=== PATIENT | female | born 1985 | race Caucasian/White ===

== ENCOUNTER 2016-09-14 06:23 | Day surgery (SDC) | payer BC, OTHER ==
[2016-09-14 07:38] LABS: Hematocrit 39 % (35-47); Hemoglobin 12.5 g/dl (12.0-16.0); Mean Corpuscular HGB Conc 32 g/dl (31-36); Mean Corpuscular Hemoglobin 26 pg (27-31); Mean Corpuscular Volume 81 fL (80-97); Mean Platelet Volume 9 um3 (7.4-10.4); Red Blood Count 4.79 10^6/ul (4.0-5.4); Red Cell Distribution Width 16 % (10.5-15); White Blood Count 11.3 10^3/ul (3.5-10.8)
[2016-09-14] MEDS ORDERED: Pantoprazole TAB (NF) 40 MG TAB PO ONE (07:43)
[2016-09-14 07:55] LABS: BUN/Creatinine Ratio 17.2 (8-20); Calcium 9.7 mg/dL (8.6-10.3); EGFR African American 155.9 (>60); EGFR Non-African American 121.3 (>60); Globulin 2.7 g/dL (2-4); Magnesium 1.7 mg/dL (1.9-2.7); Potassium 4.3 mmol/L (3.5-5.0); Total Bilirubin 0.3 mg/dL (0.2-1.0); Total Protein 6.7 g/dL (6.4-8.9)
[2016-09-14 08:09] LABS: Manual Entry Verification HAN0055; UR Preg Internal Control QC Line Present
[2016-09-14 08:14] LABS: Urine Bacteria Absent (Absent); Urine Bilirubin Negative (Negative); Urine Glucose Negative (Negative); Urine Nitrite Negative (Negative)
--- NOTE | 2016-09-14 08:30 | RAD ---
INDICATION: Chest pain. COMPARISON: Comparison is made with a prior chest x-ray study from October 02, 2015. TECHNIQUE: A portable view of the chest was obtained. FINDINGS: Cardiac and mediastinal contours appear to be within normal limits. The lungs are clear. No pleural effusion is seen. IMPRESSION: NO EVIDENCE FOR ACUTE DISEASE.
[2016-09-14 08:31] LABS: T4 7.35 mcg/mL (6.09-12.23)
[2016-09-14 08:32] LABS: TSH (Thyroid Stimulating Horm) 0.97 mcIU/mL (0.34-5.60)
[2016-09-14] MEDS ORDERED: Magnesium Oxide TAB* 400 MG PO ONE (08:56)
--- NOTE | 2016-09-14 08:56 | RAD ---
INDICATION: Right upper quadrant pain. COMPARISON: Comparison is made with a prior right upper quadrant ultrasound from March 01, 2013. TECHNIQUE: Multiple real-time images of the right upper quadrant were obtained. FINDINGS: There are gallstones present. There is mild gallbladder wall thickening measuring up to 0.4 cm in thickness and a small amount of pericholecystic fluid. There is a positive sonographic Ramirez sign present. No intra or extrahepatic ductal distention is present. The common bile duct measured 0.5 cm in diameter. The liver is normal in size and increased in echogenicity suggestive of fatty infiltration. No significant focal abnormality is seen. The pancreas is partially obscured by overlying bowel gas. The right kidney is normal in size without evidence for hydronephrosis. IMPRESSION: 1. CHOLELITHIASIS AND FINDINGS SUGGESTIVE OF ACUTE CHOLECYSTITIS, RECOMMEND CLINICAL CORRELATION. 2. FINDINGS CONSISTENT WITH FATTY INFILTRATION OF THE LIVER.
[2016-09-14] MEDS ORDERED: Omeprazole CAP* 20 MG PO ONE (09:00)
[2016-09-14] MEDS ORDERED: Ondansetron INJ* 2 MG/ML VIAL IV PRN (12:20)
[2016-09-14] MEDS ORDERED: HYDROmorphone* 1 MG/ML 1 ML SYR IV SLOW PU PRN (12:20)
[2016-09-14] MEDS ORDERED: fentaNYL* 50 MCG/ML 2 ML VIAL (100 MCG VIAL) ONE ×3 (13:40→16:33)
[2016-09-14] MEDS ORDERED: Midazolam* 1 MG/ML 2 ML VIAL (2 MG) ONE (13:40)
[2016-09-14] MEDS ORDERED: Scopolamine 1.5 mg* PATCH ONE (13:46)
--- NOTE | 2016-09-14 13:50 | HP ---
ADMISSION HISTORY AND PHYSICAL: DATE OF ADMISSION: 09/14/16. ATTENDING SURGEON: Godwin Jordan MD The patient was seen initially in the ED. CHIEF COMPLAINT: Abdominal pain. HISTORY OF PRESENT ILLNESS: This is a generally healthy 31-year-old female who was awakened at 1 o'clock this morning with pain in the upper abdomen radiating to the right upper quadrant, the mid chest, and the back. It was severe and unrelieved by change of position or antacids. It was associated with nausea, but no vomiting. It felt like severe indigestion. She has also had 2 episodes of diarrhea since the initial episode. At the present time, pain seems to be coming back after a brief hiatus. There is a positive family history of gallbladder disease. The patient relates having had previous similar, but milder symptoms in the past month and a half and also some associated diarrhea. She denies any change in the color of her urine or stools. Only previous abdominal surgery is a x3 via low transverse incision. PAST MEDICAL HISTORY: 1. GERD. 2. Seasonal environmental allergies. 3. PCOS. PAST SURGICAL HISTORY: 1. x3, most recent being December 2015. 2. Tonsillectomy remotely. 3. Bilateral foot surgery. 4. No reported surgical or anesthesia complications. CURRENT MEDICATIONS: 1. Famotidine 20 mg b.i.d. 2. Gapp-syh-wgczttt loratadine 10 mg daily p.r.n. DRUG ALLERGIES: PERCOCET, HYDROCODONE, and TRAMADOL all have caused GI side effects, rash, and hallucinations (she has tolerated codeine, morphine, and Dilaudid). TOPICAL CLINDAMYCIN and BENZACLIN have caused facial swelling. FAMILY HISTORY: Negative for anesthesia problems, bleeding, or clotting disorders. SOCIAL HISTORY: The patient is . She has 4 children. 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 She denies use of tobacco. She drinks up to 1 to 2 drinks per month. She denies other recreational drug use. REVIEW OF SYSTEMS: General: No recent constitutional symptoms or acute illnesses, other than described in the HPI. HEENT: No problems reported. Heart: No other history of chest pain, palpitations, or heart murmur. Respiratory: No history of asthma, chronic cough, or shortness of breath. GI: As above per HPI. No additions. : No additional symptoms. 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 Endocrine: No diabetes or thyroid dysfunction. She does have PCOS and had been treated with metformin in the past primarily for weight loss. Musculoskeletal: No problems reported. Neuro/psychological: No problems reported. PHYSICAL EXAMINATION GENERAL: Well-nourished obese female in no acute distress. VITAL SIGNS: Height 5 feet 4 inches, weight 210 pounds. Temperature 97.6, blood pressure 120/82, pulse 94, respirations 20, room air saturation 99%. HEENT: Pupils are equal, round, and reactive. EOMs intact. No conjunctival pallor or scleral icterus. Oropharynx: Mucous membranes slight dry. No intraoral lesions. Teeth in good repair. NECK: No lymphadenopathy, thyromegaly or masses. LUNGS: Clear to auscultation. No rales or wheezes. BREASTS: Not examined. HEART: Regular rate and rhythm. No murmur noted. ABDOMEN: Well-healed Pfannenstiel incision, obese. Bowel sounds present. Soft with moderate tenderness in the right upper quadrant as well as mid epigastrium. The remainder of the abdomen varies from uncomfortable to nontender. There are no peritoneal signs. There are no palpable masses or organomegaly. BACK: There is some mild spinous process tenderness in the mid thoracic spine. No CVA tenderness. EXTREMITIES: Without edema. NEUROLOGIC: Grossly intact. SKIN: Warm and dry. No suspicious rashes or lesions. LABORATORY DATA: Of note, white blood cell count 11,300; hemoglobin 12.5. Electrolytes are normal with the exception of magnesium at 1.7. Her lactic acid is normal at 1.2. Liver function tests are normal. TSH and T4 are normal. I will add a serum lipase, which is pending. Ultrasound of the right upper quadrant shows gallstones as well as gallbladder wall thickening at 4 mm and a small amount of pericholecystic fluid. Common bile duct is normal at 5 mm. There are also some fatty liver changes. EKG was normal. Chest x-ray shows no acute disease. IMPRESSION: Acute calculus cholecystitis. PLAN: I have discussed her case with Dr. Jordan, who will see her and examine her to confirm findings. At this point, plan is for laparoscopic cholecystectomy later today. HARLEY TOMLIN CC: Majo Pineda NP at [facility]* [id number]/[facility] #: [id number] [facility]
[2016-09-14] MEDS ORDERED: ceFAZolin 2 GM PREMIX(*) 2 GM/50 ML BAG IVPB ONE (13:53)
[2016-09-14] MEDS ORDERED: Bupivacaine 0.5% W/EPI SDV* 30 ML VIAL ONE (14:03)
[2016-09-14] MEDS ORDERED: Ondansetron INJ* 2 MG/ML VIAL ONE (14:37)
[2016-09-14] MEDS ORDERED: Dexamethasone IV* 4 MG/ML 1 ML (4 MG) ONE (14:37)
[2016-09-14] MEDS ORDERED: Succinylcholine* 20 MG/ML 10 ML VIAL ONE (14:37)
[2016-09-14] MEDS ORDERED: Propofol* 10 MG/ML 20 ML BTL IV PUSH ONE (14:37)
[2016-09-14] MEDS ORDERED: Lidocaine 2% PF * 5 ML VIAL ONE (14:37)
[2016-09-14] MEDS ORDERED: Metoclopramide IV* 5 MG/ML 2 ML VIAL IV PRN (15:07)
[2016-09-14] MEDS ORDERED: Scopolamine 1.5 mg* PATCH TRANSDERM PRN (15:07)
--- NOTE | 2016-09-14 16:01 | PN ---
Progress Note - Progress Note Note: Brief Operative Note: Preop Dx: Acute calculous cholecystitis Postop Dx: same Anesthesia: GET Surgeon: Julian Asst: HARLEY Werner EBL: < 100 ml Fluids: 1200 ml RL Drains: none Findings: dictated Specimen: gallbladder
[2016-09-14] MEDS ORDERED: HYDROmorphone* 1 MG/ML 1 ML SYR ONE (16:06)
[2016-09-14] MEDS: HYDROmorphone* 1 MG/ML 1 ML SYR IV PRN ×5 (16:09→16:29)
[2016-09-14] MEDS ORDERED: Acetaminop/Codeine 30 MG TAB* 1 TAB (300 MG/30 MG) PO PRN ×2 (16:12→16:16)
[2016-09-14] MEDS ORDERED: Acetaminophen TAB* 325 MG PO PRN (16:17)
[2016-09-14] MEDS ORDERED: Ibuprofen TAB* 600 MG PO PRN (16:17)
[2016-09-14] MEDS: fentaNYL* 50 MCG/ML 2 ML VIAL (100 MCG VIAL) IV PRN ×4 (16:33→17:24)
[2016-09-14] MEDS ORDERED: Acetaminop/Codeine 30 MG TAB* 1 TAB (300 MG/30 MG) ONE (16:53)
[2016-09-14] MEDS ORDERED: Metoclopramide IV* 5 MG/ML 2 ML VIAL ONE (17:50)
--- NOTE | 2016-09-14 17:59 | ED ---
Yaniv Wang Billy, scribed for Butch Huff MD on 09/14/16 at 0723 . HPI Chest Pain - HPI Summary HPI Summary: This is a 31 year-old female with a history of GERD coming to [facility] for evaluation of sternal chest pain that radiates to the upper chest, back, and RUQ. She states that she thought that her pain was "acid reflux" when she woke up due to the pain at 0100 today. Patient takes famotidine TID with her meals, as prescribed, and states that she has been doing so since her (she gave 9 months ago). She describes stabbing pain. Nothing made her pain better or worse. She reports positive sweating, denies nausea, vomiting, or diarrhea. LMP 1 month ago. - History of Current Complaint Chief Complaint: EDChestPainROMI Time Seen by Provider: 09/14/16 07:13 Hx Obtained From: Patient Onset/Duration: Started Hours Ago Timing: Constant Initial Severity: Moderate Current Severity: Moderate Pain Intensity: 5 Pain Scale Used: 0-10 Numeric Chest Pain Location: Mid Sternal Chest Pain Radiates: Yes Chest Pain Radiates To:: Back Character: Sharp/Stabbing Aggravating Factor(s): Nothing Alleviating Factor(s): Nothing Associated Signs and Symptoms: Positive: Chest Pain, Diaphoresis. Negative: Nausea, Vomiting - Allergy/Home Medications Allergies/Adverse Reactions: Allergies Allergy/AdvReac Type Severity Reaction Status Date / Time Benzoyl Peroxide Allergy Swelling Verified 12/29/15 17:31 [From Benzaclin] Clindamycin [From Benzaclin] Allergy Swelling Verified 12/29/15 17:31 Hydrocodone Allergy Itching Verified 12/29/15 17:31 Oxycodone [From Percocet] Allergy Vomiting Verified 12/29/15 17:31 Tramadol AdvReac Unknown Hallucinati Verified 12/29/15 17:31 ons Home Medications: Home Medications Famotidine TAB* [Pepcid 20 MG TAB*] 20 mg PO TID 09/14/16 [History Confirmed ] PMH/Surg Hx/FS Hx/Imm Hx Cardiovascular History: Reports: Hx Cardiomegaly - "Enlarged heart" GI History: Reports: Hx Gastroesophageal Reflux Disease, Hx Irritable Bowel - ON MEDICATION History: Reports: Hx Kidney Stones, Other Problems/Disorders - frequent UTI Sensory History: Reports: Hx Contacts or Glasses - GLASSES Opthamlomology History: Reports: Hx Contacts or Glasses - GLASSES Neurological History: Reports: Hx Headaches, Hx Migraine - 2-3 TIMES A MONTH - PREMENSTRUAL Psychiatric History: Reports: Hx Anxiety, Hx Depression, Other Psychiatric Issues/Disorders - Panic attacks - Surgical History Surgery Procedure, Year, and Place: 2003 & 2007 CSECTION X 2, [facility]. 1990 TONSILLECTOMY, [facility]. 2008 RIGHT FOOT SURGERY FOR INJURY, [facility]. LEFT FOOT SURGERY BUNIONECTOMY 05/18/13 Hx Anesthesia Reactions: No - Immunization History Date of Tetanus Vaccine: Unknown Infectious Disease History: No Infectious Disease History: Denies: Traveled Outside the [place] in Last 30 Days - Family History Known Family History: Positive: Cardiac Disease, Diabetes - Social History Alcohol Use: None Substance Use Type: Reports: None Smoking Status (MU): Never Smoked Tobacco Review of Systems Positive: Skin Diaphoresis Positive: Chest Pain Negative: Vomiting, Nausea All Other Systems Reviewed And Are Negative: Yes Physical Exam - Summary Physical Exam Summary: VITAL SIGNS: Reviewed. GENERAL: Patient is a well-developed and nourished female who is lying comfortable in the stretcher. Patient is not in any acute respiratory distress. HEAD AND FACE: Normocephalic and atraumatic. EYES: PERRLA, EOMI x 2, No injected conjunctiva. EARS: Hearing grossly intact. Ear canals and tympanic membranes are WNL. MOUTH: Oropharynx within normal limits. NECK: Supple, trachea is midline, no adenopathy, no JVD. CHEST: Symmetric, no tenderness at palpation LUNGS: Clear to auscultation bilaterally. No wheezing or crackles. CVS: RRR, S1 and S2 present, no murmurs or gallops appreciated. ABDOMEN: Soft, positive tenderness to the RUQ and epigastrium. No signs of distention. Positive bowel sounds. No rebound no guarding, and no masses palpated. No abdominal bruit or pulsations. EXTREMITIES: FROM in all major joints, no edema, no cyanosis or clubbing. NEURO: Alert and oriented x 3. No acute neurological deficits. Speech is normal. SKIN: Dry and warm Triage Information Reviewed: Yes Vital Signs On Initial Exam: Initial Vitals Temp Pulse Resp BP Pulse Ox 97.6 F 84 16 152/89 100 09/14/16 06:30 09/14/16 06:30 09/14/16 06:30 09/14/16 06:30 09/14/16 06:30 Vital Signs Reviewed: Yes Diagnostics - Vital Signs Vital Signs Temp Pulse Resp BP Pulse Ox 09/14/16 06:30 97.6 F 84 16 152/89 100 - Laboratory Lab Results: Lab Results 09/14/16 09/14/16 09/14/16 Range/Units 07:30 07:30 07:30 WBC 11.3 H (3.5-10.8) 10^3/ul RBC 4.79 (4.0-5.4) 10^6/ul Hgb 12.5 (12.0-16.0) g/dl Hct 39 (35-47) % MCV 81 (80-97) fL MCH 26 L (27-31) pg MCHC 32 (31-36) g/dl RDW 16 H (10.5-15) % Plt Count 269 (150-450) 10^3/ul MPV 9 (7.4-10.4) um3 Neut % (Auto) 75.2 (38-83) % Lymph % (Auto) 18.7 L (25-47) % [place] % (Auto) 4.3 (1-9) % Eos % (Auto) 1.3 (0-6) % Baso % (Auto) 0.5 (0-2) % Absolute Neuts (auto) 8.5 H (1.5-7.7) 10^3/ul Absolute Lymphs (auto) 2.1 (1.0-4.8) 10^3/ul Absolute Monos (auto) 0.5 (0-0.8) 10^3/ul Absolute Eos (auto) 0.1 (0-0.6) 10^3/ul Absolute Basos (auto) 0.1 (0-0.2) 10^3/ul Absolute Nucleated RBC 0.01 10^3/ul Nucleated RBC % 0.1 Sodium 136 (133-145) mmol/L Potassium 4.3 (3.5-5.0) mmol/L Chloride 104 (101-111) mmol/L Carbon Dioxide 26 (22-32) mmol/L Anion Gap 6 (2-11) mmol/L BUN 10 (6-24) mg/dL Creatinine 0.58 (0.51-0.95) mg/dL Est GFR ( Amer) 155.9 (>60) Est GFR (Non-Af Amer) 121.3 (>60) BUN/Creatinine Ratio 17.2 (8-20) Glucose 98 (70-100) mg/dL Lactic Acid 1.2 (0.5-2.0) mmol/L Calcium 9.7 (8.6-10.3) mg/dL Magnesium 1.7 L (1.9-2.7) mg/dL Total Bilirubin 0.30 (0.2-1.0) mg/dL AST 11 L (13-39) U/L ALT 12 (7-52) U/L Alkaline Phosphatase 53 (34-104) U/L Total Creatine Kinase 45 (10-223) U/L CK-MB (CK-2) 0.9 (0.6-6.3) ng/mL Troponin I 0.00 (<0.04) ng/mL B-Natriuretic Peptide ( - 100) pg/mL Total Protein 6.7 (6.4-8.9) g/dL Albumin 4.0 (3.2-5.2) g/dL Globulin 2.7 (2-4) g/dL Albumin/Globulin Ratio 1.5 (1-3) Lipase 16 (11.0-82.0) U/L TSH 0.97 (0.34-5.60) mcIU/mL Thyroxine (T4) 7.35 (6.09-12.23) mcg/mL Urine Color Urine Appearance Urine pH (5-9) Ur Specific Arnold (1.010-1.030) Urine Protein (Negative) Urine Ketones (Negative) Urine Blood (Negative) Urine Nitrate (Negative) Urine Bilirubin (Negative) Urine Urobilinogen (Negative) Ur Leukocyte Esterase (Negative) Urine WBC (Auto) (Absent) Urine RBC (Auto) (Absent) Ur Squamous Epith Cells (Absent) Urine Bacteria (Absent) Urine Glucose (Negative) Urine Ascorbic Acid Urine Test (Negative) 09/14/16 09/14/16 Range/Units 07:30 07:50 WBC (3.5-10.8) 10^3/ul RBC (4.0-5.4) 10^6/ul Hgb (12.0-16.0) g/dl Hct (35-47) % MCV (80-97) fL MCH (27-31) pg MCHC (31-36) g/dl RDW (10.5-15) % Plt Count (150-450) 10^3/ul MPV (7.4-10.4) um3 Neut % (Auto) (38-83) % Lymph % (Auto) (25-47) % [place] % (Auto) (1-9) % Eos % (Auto) (0-6) % Baso % (Auto) (0-2) % Absolute Neuts (auto) (1.5-7.7) 10^3/ul Absolute Lymphs (auto) (1.0-4.8) 10^3/ul Absolute Monos (auto) (0-0.8) 10^3/ul Absolute Eos (auto) (0-0.6) 10^3/ul Absolute Basos (auto) (0-0.2) 10^3/ul Absolute Nucleated RBC 10^3/ul Nucleated RBC % Sodium (133-145) mmol/L Potassium (3.5-5.0) mmol/L Chloride (101-111) mmol/L Carbon Dioxide (22-32) mmol/L Anion Gap (2-11) mmol/L BUN (6-24) mg/dL Creatinine (0.51-0.95) mg/dL Est GFR ( Amer) (>60) Est GFR (Non-Af Amer) (>60) BUN/Creatinine Ratio (8-20) Glucose (70-100) mg/dL Lactic Acid (0.5-2.0) mmol/L Calcium (8.6-10.3) mg/dL Magnesium (1.9-2.7) mg/dL Total Bilirubin (0.2-1.0) mg/dL AST (13-39) U/L ALT (7-52) U/L Alkaline Phosphatase (34-104) U/L Total Creatine Kinase (10-223) U/L CK-MB (CK-2) (0.6-6.3) ng/mL Troponin I (<0.04) ng/mL B-Natriuretic Peptide 55 ( - 100) pg/mL Total Protein (6.4-8.9) g/dL Albumin (3.2-5.2) g/dL Globulin (2-4) g/dL Albumin/Globulin Ratio (1-3) Lipase (11.0-82.0) U/L TSH (0.34-5.60) mcIU/mL Thyroxine (T4) (6.09-12.23) mcg/mL Urine Color Straw Urine Appearance Cloudy Urine pH 7.0 (5-9) Ur Specific Arnold 1.004 L (1.010-1.030) Urine Protein Negative (Negative) Urine Ketones Negative (Negative) Urine Blood Negative (Negative) Urine Nitrate Negative (Negative) Urine Bilirubin Negative (Negative) Urine Urobilinogen Negative (Negative) Ur Leukocyte Esterase 2+ H (Negative) Urine WBC (Auto) Trace(0-5/hpf) (Absent) Urine RBC (Auto) Absent (Absent) Ur Squamous Epith Cells Present H (Absent) Urine Bacteria Absent (Absent) Urine Glucose Negative (Negative) Urine Ascorbic Acid Not Reportable Urine Test Negative (Negative) Result Diagrams: 09/14/16 07:30 09/14/16 07:30 Lab Statement: Any lab studies that have been ordered have been reviewed, and results considered in the medical decision making process. - Radiology CXR Xray Interpretation: No Acute Changes Radiology Interpretation Completed By: Radiologist - Ultrasound No standard instances Ultrasound Interpretation Completed By: Radiologist - Abdominal Ultrasound: 1. CHOLELITHIASIS AND FINDINGS SUGGESTIVE OF ACUTE CHOLECYSTITIS, RECOMMEND CLINICAL CORRELATION. 2. FINDINGS CONSISTENT WITH FATTY INFILTRATION OF THE LIVER. - EKG 0633 EKG Interpretation: NSR 73 bpm, no STEMI Re-Evaluation - Re-Evaluation First Eval Re-Evaluation Time: 09:52 Comment: Imaging results reviewed. Chest Pain Course/Dx - Course Assessment/Plan: This is a 31 year-old female with a history of GERD coming to [facility] for evaluation of sternal chest pain that radiates to the upper chest, back, and RUQ. She states that she thought that her pain was "acid reflux" when she woke up due to the pain at 0100 today. Patient takes famotidine TID with her meals, as prescribed, and states that she has been doing so since her (she gave 9 months ago). She describes stabbing pain. Nothing made her pain better or worse. She reports positive sweating, denies nausea, vomiting, or diarrhea. LMP 1 month ago. Test results WNL except for WBC of 11.3. Magnesium is 1.7. Normal LFTs. Troponin 0.00. UA is negative. RUQ ultrasound shows 1. cholelithiasis and findings suggestive of acute cholecystitis, recommend clinical correlation. 2. findings consistent with fatty infiltration of the liver. In the ED course, the patient was given magnesium for hypomagnesemia. The patient was given IV fluids and protonix. Since the ultrasound showed an acute cholecystitis, I discussed my physical exam findings with Dr. Jordan who accepted the patient for admission. The patient is hemodynamically stable, A&Ox3. - Chest Pain Differential Diagnosis/HQI/PQRI: ACS, Angina, Chest Wall, GI Disease, Lower Respiratory Infection - cholelithiasis, cholecystitis, Other: - Diagnoses Provider Diagnoses: Acute cholecystitis - Provider Notifications Discussed Care Of Patient With: Dr. Jordan (surgery) at 1015: accepts admission. Discharge - Discharge Plan Condition: Stable Disposition: ADMITTED TO [facility] The documentation as recorded by the Yaniv ellis Billy accurately reflects the service I personally performed and the decisions made by me, Butch Huff MD.
[2016-09-14 18:12] VITALS: BP 124/71
[2016-09-14] MEDS ORDERED: Famotidine TAB* 20 MG PO SCH (21:00)
--- NOTE | 2016-09-15 00:31 | OP ---
OPERATIVE REPORT: DATE OF OPERATION: 09/14/16 - SDS DATE OF : 85 SURGEON: Godwin Jordan MD SERVICE DIRECTOR: HARLEY Hook ANESTHESIOLOGIST: Sherie Zepeda MD ANESTHESIA: General endotracheal. PRE-OP DIAGNOSIS: Acute cholecystitis. POST-OP DIAGNOSIS: Acute cholecystitis. OPERATIVE PROCEDURE: Laparoscopic cholecystectomy. ESTIMATED BLOOD LOSS: Minimal. IV FLUIDS: 1200 mL crystalloid. SPECIMEN: Gallbladder. DRAINS: None. COMPLICATIONS: None. COUNTS: Instrument, needle, and sponge counts were correct. DESCRIPTION OF PROCEDURE: The patient was brought to the operating room and placed on the table supine. Sequential compression devices were placed on both lower extremities. General anesthesia was administered. The abdomen was prepped and draped in the usual sterile fashion. Time-out was performed. Local anesthetic was infiltrated into the skin and soft tissue prior to making each incision. Entry to the abdomen was through a transumbilical incision using a vertical incision and an open technique. After accessing the peritoneal cavity, a 5-mm trocar was placed and carbon dioxide was insufflated to a pressure of 15 mmHg. Under direct visualization, a 12-mm trocar was placed in the subxiphoid position, two 5-mm trocars were placed in the right upper quadrant. The gallbladder was noted to be enrobed in omentum. It did not appear to be distended, but it did have evidence of chronic and acute inflammation. The gallbladder fundus was retracted superiorly. The omental attachments were divided using combination of sharp blunt dissection and cautery until the gallbladder could be visualized in its entirety. The infundibulum was retracted and the peritoneum investing the gallbladder wall was incised medially and laterally with a cautery. The cystic artery was identified, it was bluntly dissected out, clipped, and divided. The cystic duct was bluntly dissected out. Critical views were obtained. It was clipped and divided. The gallbladder was retracted superiorly by grasping the cystic duct stump and then a cautery was used to divide the gallbladder from its attachments to the liver staying in an avascular plane. There was a posterior arterial vessel that was identified; it was preserved. The gallbladder was freed. It was placed in an endoscopic retrieval bag and retrieved from the umbilical site. The inspection of the area of dissection revealed hemostasis to be good except for a small area of oozing on the left edge of the gallbladder fossa, which was controlled with cautery. Subsequently, irrigation was performed until clear and then the ports were removed under direct visualization and carbon dioxide was released. The umbilical wound was closed with 0 Polysorb in an interrupted fashion to approximate the fascia. The skin incisions were closed with 4-0 Monocryl in a subcuticular fashion. Steri- Strips were applied. The patient tolerated the procedure well. She was extubated uneventfully. She was transferred to the recovery room in stable condition. CC: Majo Pineda NP* [id number]/[facility] #: [id number] [email or web address]
== END 2016-09-14 18:06 | disposition home or self-care (01) ==
LOC: ED 06:23 → OR 14:17
PROVIDERS: ATTEND Surgery
DX: K80.10 Calculus of gallbladder with chronic cholecystitis without obstruction (principal); K21.9 Gastro-esophageal reflux disease without esophagitis; Z88.5 Allergy status to narcotic agent
CPT/HCPCS: 36415; 71010; 76705; 80053; 81003; 81015; 81025; 82550; 82553; 83605; 83690; 83735; 83880; 84436; 84443; 84484; 85025; 87077; 87086; 88304; 93005; 99283; A9270-GY; J0330; J0690; J1100; J1170; J2250; J2405; J2704; J3010

== ENCOUNTER 2017-02-23 23:25 | Emergency (ER) | payer BC, OTHER ==
[2017-02-24] MEDS ORDERED: Ondansetron INJ* 2 MG/ML VIAL IV ONE ×2 (00:24→01:56)
[2017-02-24] MEDS ORDERED: NS 0.9% 1000 ML* 1,000 ML IV ONE ×2 (00:24→01:55)
[2017-02-24 00:54] LABS: Hematocrit 45 % (35-47); Hemoglobin 15.2 g/dl (12.0-16.0); Mean Corpuscular HGB Conc 34 g/dl (31-36); Mean Corpuscular Hemoglobin 28 pg (27-31); Mean Corpuscular Volume 83 fL (80-97); Mean Platelet Volume 8 um3 (7.4-10.4); Red Cell Distribution Width 14 % (10.5-15); White Blood Count 7.6 10^3/ul (3.5-10.8)
[2017-02-24 01:06] LABS: Albumin 4.2 g/dL (3.2-5.2); BUN/Creatinine Ratio 17.6 (8-20); Calcium 9.4 mg/dL (8.6-10.3); EGFR African American 129.8 (>60); EGFR Non-African American 100.9 (>60); Globulin 3.3 g/dL (2-4); Magnesium 1.7 mg/dL (1.9-2.7); Potassium 3.5 mmol/L (3.5-5.0); Total Bilirubin 0.8 mg/dL (0.2-1.0); Total Protein 7.5 g/dL (6.4-8.9)
[2017-02-24 01:09] LABS: Troponin I 0.01 ng/mL (<0.04)
[2017-02-24 01:10] VITALS: BP 125/89
[2017-02-24] MEDS ORDERED: Ketorolac INJ* 30 MG/ML 1 ML VIAL IV PUSH ONE (01:55)
[2017-02-24] MEDS ORDERED: diPHENhydraMINE IV* 50 MG/ML 1 ml VIAL (BENADRYL) IV ONE (01:55)
--- NOTE | 2017-02-24 01:59 | ED ---
Syncope/Near Syncope - HPI Summary HPI Summary: Healthy 31 y.o. female here w/ what she believes was syncope earlier tonight. Has had nausea, vomiting and diarrhea for 4 days - just got over a 9 day course of this and so suspects she now has this. Has been "peeing" out of her butt. Able to tolerate very small bites of toast once a day and a few bites of applesauce but any time she drinks liquids, they immediately come out in the form of loose stools. She has been feeling exhausted as a result and tonight when going from the bathroom to her room upstairs, she has a period of amnesia where she does not recall how she ended up on the floor of her children's room - believes she fell down the stairs. Has a ARANDA now w/ mild photophobia, Rt shoulder pain radiating into Rt side of neck and feels exhausted. Nausea is intermittent. Ab is sore throughout - no focal area of pain. Denies change in vision, tinnitus, numbness, tingling, weakness. She was able to ambulate after the event. Denies chest pain, SOB, back pain, extremity pain. Prior to her getting sick, she was taking care of her twin infants who were dx'd w/ hand-foot -mouth. No h/o syncope. 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 - - Allergies/Home Medications Allergies/Adverse Reactions: Allergies Allergy/AdvReac Type Severity Reaction Status Date / Time Benzoyl Peroxide Allergy Swelling Verified 02/23/17 23:57 [From Benzaclin] Clindamycin [From Benzaclin] Allergy Swelling Verified 02/23/17 23:57 Hydrocodone Allergy Itching Verified 02/23/17 23:57 Oxycodone [From Percocet] Allergy Vomiting Verified 02/23/17 23:57 Tramadol AdvReac Unknown Hallucinati Verified 02/23/17 23:57 ons PMH/Surg Hx/FS Hx/Imm Hx Previously Healthy: Yes Endocrine/Hematology History: Denies: Hx Anticoagulant Therapy, Hx Blood Disorders, Hx Diabetes, Hx Thyroid Disease, Hx Anemia, Hx Unexplained Bleeding, Autoimmune Disease Cardiovascular History: Reports: Hx Cardiomegaly - "Enlarged heart" Denies: Hx Aneurysm, Hx Atrial Fibrillation, Hx Congenital Heart Disease, Hx Coronary Artery Disease, Hx Deep Vein Thrombosis, Hx Hypercholesterolemia, Hx Hypotension, Hx Myocardial Infarction, Hx Syncope, Hx Valvular Heart Disease Respiratory History: Denies: Hx Asthma, Hx Chronic Obstructive Pulmonary Disease (COPD), Hx Pneumonia, Hx Pulmonary Embolism, Hx Sleep Apnea GI History: Reports: Hx Gastroesophageal Reflux Disease, Hx Irritable Bowel - ON MEDICATION History: Reports: Hx Kidney Stones, Other Problems/Disorders - frequent UTI Denies: Hx Acute Renal Failure, Hx Chronic Renal Failure Sensory History: Reports: Hx Contacts or Glasses - GLASSES Opthamlomology History: Reports: Hx Contacts or Glasses - GLASSES Neurological History: Reports: Hx Headaches, Hx Migraine - 2-3 TIMES A MONTH - PREMENSTRUAL Psychiatric History: Reports: Hx Anxiety, Hx Depression, Other Psychiatric Issues/Disorders - Panic attacks - Surgical History Surgery Procedure, Year, and Place: 2003 & 2007 CSECTION X 2, [facility]. 1990 TONSILLECTOMY, [facility]. 2008 RIGHT FOOT SURGERY FOR INJURY, [facility]. LEFT FOOT SURGERY BUNIONECTOMY 05/18/13 Hx Anesthesia Reactions: No - Immunization History Date of Tetanus Vaccine: Unknown Infectious Disease History: No Infectious Disease History: Denies: Traveled Outside the [place] in Last 30 Days - Family History Known Family History: Positive: Cardiac Disease, Diabetes - Social History Occupation: Employed Full-time Lives: With Family Alcohol Use: None Hx Substance Use: No Substance Use Type: Reports: None Hx Tobacco Use: No Smoking Status (MU): Never Smoked Tobacco Review of Systems Positive: Fatigue. Negative: Fever, Chills Positive: Photophobia. Negative: Blurred Vision, Diplopia, Drainage, Erythema ENT: Negative Negative: Epistaxis, Dental Pain, Sore Throat, Ear Ache, Nasal Discharge Cardiovascular: Negative Negative: Palpitations, Chest Pain Respiratory: Negative Negative: Shortness Of Breath, Cough Gastrointestinal: Other - see HPI Negative: burning, dysuria, discharge, frequency, flank pain, incontinence Musculoskeletal: Other - see HPI - shoulder/neck Skin: Negative Negative: Bruising Positive: Headache, Syncope - as in HPI. Negative: Weakness, Paresthesia, Numbness, Slurred Speech Psychological: Normal All Other Systems Reviewed And Are Negative: Yes Physical Exam Triage Information Reviewed: Yes Vital Signs On Initial Exam: Initial Vitals Temp Pulse Resp BP Pulse Ox 98.0 F 126 18 121/91 99 02/23/17 23:38 02/23/17 23:38 02/23/17 23:38 02/23/17 23:38 02/23/17 23:38 Vital Signs Reviewed: Yes Appearance: Positive: Pain Distress - mild to moderate - headache, appears fatigued but has strength - able to sit up, move extremities, carry on conversation w/o hesitation; is w her today, Obese Skin: Positive: Warm, Dry - no external signs of trauma (ie. bruising, abrasions , lacs, etc) Head/Face: Positive: Normal Head/Face Inspection - NTTP, no step off, no battleign, no racoon eyes. Negative: TMJ Tenderness Eyes: Positive: Normal, EOMI, EUNICE, Conjunctiva Clear ENT: Positive: Normal ENT inspection, Hearing grossly normal, Pharynx normal, TMs normal - no hemotympanum Dental: Negative: Dental Fracture @ Neck: Positive: Supple, No Lymphadenopathy, Tenderness @ - Rt paracervical TTP Respiratory/Lung Sounds: Positive: Clear to Auscultation, Breath Sounds Present. Negative: Decreased Breath Sounds, Rales, Rhonchi, Subcutaneous Emphysema, Stridor, Tracheal Deviation, Wheezes, Unable to speak in full sentences Cardiovascular: Positive: Normal, RRR, Pulses are Symmetrical in both Upper and Lower Extremities, S1, S2. Negative: Murmur, Rub, Leg Edema Left, Leg Edema Right Abdomen Description: Positive: No Organomegaly, Soft, Other: - generalized tenderness - no focal area of pain w/ palpation - no rebound tenderness. Negative: CVA Tenderness (R), CVA Tenderness (L) Bowel Sounds: Positive: Present Pelvic Exam: Positive: other - deferred Musculoskeletal: Positive: Strength/ROM Intact - Rt elbow, wrist, phalanges moving well otherwise, Limited @ - Rt shoulder abduction triggers pain; TTP over bony landmarks and soft tissue supporting shoulder joint on Rt; no gross deformity Neurological: Positive: Normal, Sensory/Motor Intact, Alert, Oriented to Person Place, Time, CN Intact II-III, Facial Symmetry, Speech Normal Psychiatric: Positive: Normal - [place] Coma Scale Coma Scale Total: 15 Diagnostics - Vital Signs Vital Signs Temp Pulse Resp BP Pulse Ox 02/24/17 01:09 95 125/87 96 02/23/17 23:38 98.0 F 126 18 121/91 99 - Laboratory Lab Results: Lab Results 02/24/17 02/24/17 02/24/17 Range/Units 00:40 00:40 00:40 WBC 7.6 (3.5-10.8) 10^3/ul RBC 5.40 (4.0-5.4) 10^6/ul Hgb 15.2 (12.0-16.0) g/dl Hct 45 (35-47) % MCV 83 (80-97) fL MCH 28 (27-31) pg MCHC 34 (31-36) g/dl RDW 14 (10.5-15) % Plt Count 266 (150-450) 10^3/ul MPV 8 (7.4-10.4) um3 Neut % (Auto) 72.2 (38-83) % Lymph % (Auto) 14.6 L (25-47) % [place] % (Auto) 11.5 H (1-9) % Eos % (Auto) 1.3 (0-6) % Baso % (Auto) 0.4 (0-2) % Absolute Neuts (auto) 5.5 (1.5-7.7) 10^3/ul Absolute Lymphs (auto) 1.1 (1.0-4.8) 10^3/ul Absolute Monos (auto) 0.9 H (0-0.8) 10^3/ul Absolute Eos (auto) 0.1 (0-0.6) 10^3/ul Absolute Basos (auto) 0 (0-0.2) 10^3/ul Absolute Nucleated RBC 0 10^3/ul Nucleated RBC % 0.1 Sodium 133 (133-145) mmol/L Potassium 3.5 (3.5-5.0) mmol/L Chloride 99 L (101-111) mmol/L Carbon Dioxide 24 (22-32) mmol/L Anion Gap 10 (2-11) mmol/L BUN 12 (6-24) mg/dL Creatinine 0.68 (0.51-0.95) mg/dL Est GFR ( Amer) 129.8 (>60) Est GFR (Non-Af Amer) 100.9 (>60) BUN/Creatinine Ratio 17.6 (8-20) Glucose 113 H (70-100) mg/dL Lactic Acid 0.9 (0.5-2.0) mmol/L Calcium 9.4 (8.6-10.3) mg/dL Magnesium 1.7 L (1.9-2.7) mg/dL Total Bilirubin 0.80 (0.2-1.0) mg/dL AST 35 (13-39) U/L ALT 40 (7-52) U/L Alkaline Phosphatase 79 (34-104) U/L Troponin I 0.01 (<0.04) ng/mL Total Protein 7.5 (6.4-8.9) g/dL Albumin 4.2 (3.2-5.2) g/dL Globulin 3.3 (2-4) g/dL Albumin/Globulin Ratio 1.3 (1-3) Amylase 27 L (29-103) U/L Lipase 12 (11.0-82.0) U/L TSH Pending Result Diagrams: 02/24/17 00:40 02/24/17 00:40 Diagnostic Studies Comment: CT brain, cervical spine report by radiology w/o acute findings. CXR report is w/o acute findings. Rt shoulder XR pending Lab Statement: Any lab studies that have been ordered have been reviewed, and results considered in the medical decision making process. Re-Evaluation - Re-Evaluation First Eval Change: Improved - nausea improved s/p zofran but returned and ARANDA is painful. After revieweding labs and imaging, pt cleared for more medication to address ARANDA which appears to be a concussion and Rt shoulder pain (results pending but if no fx/dislocation on XR, suspect rotator cuff injury). Her vitals sx's are stable Course/Dx Course Of Treatment: Pt presents w/ what she suspects was syncopal episode earlier tonight. She has endured a 4 day h/o of nausea, vomiting and diarrhea and felt exhausted tonight - this may have caused dehydration and been trigger for syncopal event tonight however brain CT, chest XR, ECG and labs performed to r/o life threatening causes. Her brain and cervical CT are w/o acute findings in report as is her CXR. Labs reveal dehydration and malnourishment most likely from anorexia d/t illness. She has brief improvement of nausea w/ IV zofran and fluids however nausea returned after a while and ARANDA painful. Medications were ordered to better control sx while shoulder XR is pending. Signed out to Dr Jacques at 2:00am. Scheduled system shut down scheduled at 2am - see scanned documents for further details if missing from chart. - Diagnoses Provider Diagnoses: UTI (urinary tract infection), Viral gastroenteritis, Sprain of right shoulder Discharge - Discharge Plan Condition: Stable Disposition: HOME Referrals: Majo Pineda, DEATH CLAIM EXAMINER [Primary Care Provider] -
[2017-02-24] MEDS ORDERED: Ondansetron ODT TAB* 4 MG ONE (03:34)
[2017-02-24] MEDS ORDERED: Ondansetron INJ* 2 MG/ML VIAL ONE (03:35)
[2017-02-24 06:16] LABS: TSH (Thyroid Stimulating Horm) 3.06 mcIU/mL (0.34-5.60)
[2017-02-24 07:21] LABS: Urine Bacteria Absent (Absent); Urine Bilirubin Negative (Negative); Urine Glucose Negative (Negative); Urine Nitrite Negative (Negative)
--- NOTE | 2017-02-24 07:48 | RAD ---
INDICATION: Syncope COMPARISON: None TECHNIQUE: An AP portable view obtained at 0034 hours is submitted. FINDINGS: Bones/Soft Tissues: There are no acute bony findings. Cardiomediastinal: The cardiomediastinal silhouette is normal. Lungs: There are no infiltrates. Pleura: There are no pleural effusions. Other: None IMPRESSION: NORMAL CHEST.
--- NOTE | 2017-02-24 07:48 | RAD ---
INDICATION: Fall. Intracranial injury. Headaches. COMPARISON: None TECHNIQUE: Noncontrast axial source images were acquired from the skull base to the vertex. FINDINGS: Ventricles/sulci: The ventricles and cisterns are normal in size and configuration for age. Brain parenchyma: There is no focal parenchymal finding, evidence of intracranial mass, or intracranial mass effect. Intracranial hemorrhage:None. Extra-axial spaces: There are no abnormal extra axial fluid collections or evidence of extra-axial mass. Calvarium: There is no calvarial fracture or other calvarial abnormality. Scalp: There is no evidence of scalp or extracalvarial soft tissue abnormality. Paranasal sinuses/mastoid: The paranasal sinuses and mastoid air cells are clear. Other: None. IMPRESSION: NEGATIVE EXAMINATION
--- NOTE | 2017-02-24 07:50 | RAD ---
INDICATION: Fall. Pain. Neck injury. COMPARISON: None TECHNIQUE: Noncontrast axial source images was performed from the skull base to the thoracic inlet. Coronal and and sagittal reformatted images were generated. FINDINGS: Vertebrae: There is no fracture or acute focal bony lesion. There is minor midcervical marginal osteophyte formation involving C4-C6 Alignment: The craniocervical junction appears normal. The cervical vertebrae are normally aligned. Central Canal: There are no significant CT abnormalities of the central canal or foramina. MR imaging is a more sensitive method to evaluate the canal and foramina. Intervertebral disc spaces: The disc spaces are maintained. Brain: The visualized brain appears unremarkable. Soft tissues: The visualized soft tissue elements of the neck are unremarkable. The prevertebral soft tissues appear normal. The lung apices are clear. IMPRESSION: NO ACUTE FINDINGS.
--- NOTE | 2017-02-24 07:53 | RAD ---
HISTORY: Fall, right shoulder pain COMPARISONS: None VIEWS: 4, Frontal internal rotation, external rotation, outlet, and axillary views of the right shoulder FINDINGS: BONE DENSITY: Normal. BONES: There is no displaced fracture. JOINTS: There is no arthropathy. ALIGNMENT: There is no dislocation. SOFT TISSUES: Unremarkable. OTHER FINDINGS: None. IMPRESSION: NO ACUTE OSSEOUS INJURY. IF SYMPTOMS PERSIST, RECOMMEND REPEAT IMAGING.
== END 2017-02-24 03:58 | disposition home or self-care (01) ==
LOC: ED 23:25
DX: N39.0 Urinary tract infection, site not specified (principal); A08.4 Viral intestinal infection, unspecified; S43.401A Unspecified sprain of right shoulder joint, initial encounter; R55 Syncope and collapse; R53.83 Other fatigue; H53.149 Visual discomfort, unspecified; R11.2 Nausea with vomiting, unspecified; R19.7 Diarrhea, unspecified; X58.XXXA Exposure to other specified factors, initial encounter; Y93.9 Activity, unspecified; Y92.9 Unspecified place or not applicable
CPT/HCPCS: 36415; 70450; 71010; 72125; 80053; 81003; 81015; 82150; 83605; 83690; 83735; 84443; 84484; 85025; 87045; 87046; 87077; 87899; 93005; 96374; 96375; 99283; A9270-GY; J1200; J1885; J2405

== ENCOUNTER 2017-09-13 16:53 | Emergency (ER) | payer BC, OTHER ==
[2017-09-13] MEDS ORDERED: Ketorolac INJ* 30 MG/ML 1 ML VIAL IV PUSH ONE (19:08)
[2017-09-13] MEDS ORDERED: Ketorolac INJ* 60 MG/2 ML VIAL ONE (20:26)
[2017-09-13] MEDS ORDERED: Ketorolac INJ* 60 MG/2 ML VIAL IM ONE (20:32)
[2017-09-13 20:33] LABS: ABS Basophils 0.1 10^3/ul (0-0.2); ABS Eosinophils 0.1 10^3/ul (0-0.6); ABS Monocytes 0.5 10^3/ul (0-0.8); ABS Neutrophils 6.3 10^3/ul (1.5-7.7); ABS Nucleated RBC 0 10^3/ul; Eosinophil % 1.4 % (0-6); Hematocrit 40 % (35-47); Hemoglobin 13.3 g/dl (12.0-16.0); Lymphocyte % 22.6 % (25-47); Mean Corpuscular HGB Conc 33 g/dl (31-36); Mean Corpuscular Hemoglobin 28 pg (27-31); Mean Corpuscular Volume 85 fL (80-97); Mean Platelet Volume 8.3 um3 (7.4-10.4); Nucleated Red Blood Cells % 0.1; Platelet Count 272 10^3/ul (150-450); Red Blood Count 4.68 10^6/ul (4.0-5.4); Red Cell Distribution Width 15 % (10.5-15); White Blood Count 9.1 10^3/ul (3.5-10.8)
[2017-09-13 20:39] LABS: INR 0.94 (0.77-1.02)
[2017-09-13 20:50] LABS: EGFR Non-African American 136.7 (>60)
--- NOTE | 2017-09-13 21:47 | ED ---
Lower Extremity - HPI Summary HPI Summary: Slipped on wet floor with flip flops on feet - never fell but contorted her leg - felt pain in calf. Difficulty walking but was able to do so immediately after in external rotation of hip. Could not drive (ie. difficulty plantar and dorsiflexing her ankle). Denies numbness, tingling, weakness. Has not applied ice or taken anything for pain. Has had toradol in the past with good relief. Has also tolerated tylenol w/ codeine in the past w/o difficulty. Denies use of fluoriquinolones, steroids, statins. NOTE: tore Rt MT ligament during w/ minimal mechanism of injury - History of Current Complaint Chief Complaint: EDExtremityLower Stated Complaint: RT LEG PAIN Time Seen by Provider: 09/13/17 17:54 Hx Obtained From: Patient, Family/Still Runner - mom Hx Last Menstrual Period: 2 weeks ago Pain Intensity: 10 - Allergies/Home Medications Allergies/Adverse Reactions: Allergies Allergy/AdvReac Type Severity Reaction Status Date / Time benzoyl peroxide Allergy Hives Verified 09/13/17 17:00 [From Benzamycin] erythromycin base Allergy Hives Verified 09/13/17 17:00 [From Benzamycin] hydrocodone Allergy Hives Verified 09/13/17 17:00 oxycodone Allergy Hives Verified 09/13/17 17:00 tramadol Allergy Hallucinati Verified 09/13/17 17:00 ons PMH/Surg Hx/FS Hx/Imm Hx Previously Healthy: Yes Endocrine/Hematology History: Denies: Hx Anticoagulant Therapy, Hx Blood Disorders, Hx Diabetes, Hx Thyroid Disease, Hx Anemia, Hx Unexplained Bleeding Cardiovascular History: Reports: Hx Cardiomegaly - "Enlarged heart" Denies: Hx Aneurysm, Hx Atrial Fibrillation, Hx Congenital Heart Disease, Hx Coronary Artery Disease, Hx Deep Vein Thrombosis, Hx Hypercholesterolemia, Hx Hypotension, Hx Myocardial Infarction, Hx Syncope, Hx Valvular Heart Disease Respiratory History: Denies: Hx Asthma, Hx Chronic Obstructive Pulmonary Disease (COPD), Hx Pneumonia, Hx Pulmonary Embolism, Hx Sleep Apnea GI History: Reports: Hx Gastroesophageal Reflux Disease, Hx Irritable Bowel - ON MEDICATION History: Reports: Hx Kidney Stones, Other Problems/Disorders - frequent UTI Denies: Hx Acute Renal Failure, Hx Chronic Renal Failure Musculoskeletal History: Reports: Hx Orthopedic Injury - Rt MT ligament tear requiring surgery Sensory History: Reports: Hx Contacts or Glasses - GLASSES Opthamlomology History: Reports: Hx Contacts or Glasses - GLASSES Neurological History: Reports: Hx Headaches, Hx Migraine - 2-3 TIMES A MONTH - PREMENSTRUAL Psychiatric History: Reports: Hx Anxiety, Hx Depression, Other Psychiatric Issues/Disorders - Panic attacks - Surgical History Surgery Procedure, Year, and Place: 2003 & 2007 CSECTION X 2, [facility]. 1990 TONSILLECTOMY, [facility]. 2009 RIGHT FOOT SURGERY FOR INJURY, [facility]. LEFT FOOT SURGERY BUNIONECTOMY 05/18/13 Hx Anesthesia Reactions: No - Immunization History Date of Tetanus Vaccine: Unknown Infectious Disease History: No Infectious Disease History: Denies: Traveled Outside the [place] in Last 30 Days - Family History Known Family History: Positive: Cardiac Disease, Diabetes - Social History Lives: With Family Alcohol Use: None Hx Substance Use: No Substance Use Type: Reports: None Hx Tobacco Use: No Smoking Status (MU): Never Smoked Tobacco Review of Systems Negative: Fatigue Negative: Vomiting, Nausea Positive: no symptoms reported Positive: Arthralgia, Myalgia, Decreased ROM, Edema Skin: Negative Neurological: Negative Positive: Anxious All Other Systems Reviewed And Are Negative: Yes Physical Exam Triage Information Reviewed: Yes Vital Signs On Initial Exam: Initial Vitals Temp Pulse Resp BP Pulse Ox 97.7 F 99 16 150/97 98 09/13/17 16:55 09/13/17 16:55 09/13/17 16:55 09/13/17 16:55 09/13/17 16:55 Vital Signs Reviewed: Yes Appearance: Positive: Well-Appearing, Pain Distress, Obese Skin: Positive: Warm, Skin Color Reflects Adequate Perfusion, Dry - Rt calf is erythematous and cold from ice pack - no ecchymosis Head/Face: Positive: Normal Head/Face Inspection Eyes: Positive: EOMI ENT: Positive: Hearing grossly normal, Pharynx normal - mucosa moist Respiratory/Lung Sounds: Positive: Breath Sounds Present Cardiovascular: Positive: Pulses are Symmetrical in both Upper and Lower Extremities, Leg Edema Right - Rt calf is slightly larger than Lt Musculoskeletal: Positive: Limited @ - plantar and dorsiflexion limited 2ndry to pain - tanvi's tendon is palpably intact at distal aspect and heel TTP - calf w/ exquisite TTP - can extend knee but is painful, Other - cannot evaluate Rivera d/t pain in calf w/ gentle pressure Neurological: Positive: Normal, Sensory/Motor Intact, Alert, Oriented to Person Place, Time, CN Intact II-III Psychiatric: Positive: Anxious Procedures - Splinting Lower Extremity Location: RT LE - applied ALA, PA-C Hand-Made Type: fiberglass Splint: posterior walking Pre-Proc Neuro Vasc Exam: normal Post-Proc Neuro Vasc Exam: normal Diagnostics - Vital Signs Vital Signs Temp Pulse Resp BP Pulse Ox 09/13/17 16:55 97.7 F 99 16 150/97 98 - Laboratory Lab Results: Lab Results 09/13/17 09/13/17 09/13/17 Range/Units 20:28 20:28 20:28 WBC 9.1 (3.5-10.8) 10^3/ul RBC 4.68 (4.0-5.4) 10^6/ul Hgb 13.3 (12.0-16.0) g/dl Hct 40 (35-47) % MCV 85 (80-97) fL MCH 28 (27-31) pg MCHC 33 (31-36) g/dl RDW 15 (10.5-15) % Plt Count 272 (150-450) 10^3/ul MPV 8.3 (7.4-10.4) um3 Neut % (Auto) 69.9 (38-83) % Lymph % (Auto) 22.6 L (25-47) % [place] % (Auto) 5.5 (0-7) % Eos % (Auto) 1.4 (0-6) % Baso % (Auto) 0.6 (0-2) % Absolute Neuts (auto) 6.3 (1.5-7.7) 10^3/ul Absolute Lymphs (auto) 2.0 (1.0-4.8) 10^3/ul Absolute Monos (auto) 0.5 (0-0.8) 10^3/ul Absolute Eos (auto) 0.1 (0-0.6) 10^3/ul Absolute Basos (auto) 0.1 (0-0.2) 10^3/ul Absolute Nucleated RBC 0 10^3/ul Nucleated RBC % 0.1 INR (Anticoag Therapy) 0.94 (0.77-1.02) Sodium 140 (139-145) mmol/L Potassium 3.9 (3.5-5.0) mmol/L Chloride 108 (101-111) mmol/L Carbon Dioxide 25 (22-32) mmol/L Anion Gap 7 (2-11) mmol/L BUN 8 (6-24) mg/dL Creatinine 0.52 (0.51-0.95) mg/dL Est GFR ( Amer) 175.7 (>60) Est GFR (Non-Af Amer) 136.7 (>60) BUN/Creatinine Ratio 15.4 (8-20) Glucose 96 (70-100) mg/dL Calcium 8.7 (8.6-10.3) mg/dL Total Bilirubin 0.40 (0.2-1.0) mg/dL AST 15 (13-39) U/L ALT 16 (7-52) U/L Alkaline Phosphatase 53 (34-104) U/L Total Protein 6.7 (6.4-8.9) g/dL Albumin 3.9 (3.2-5.2) g/dL Globulin 2.8 (2-4) g/dL Albumin/Globulin Ratio 1.4 (1-3) Result Diagrams: 09/13/17 20:28 09/13/17 20:28 Lab Statement: Any lab studies that have been ordered have been reviewed, and results considered in the medical decision making process. Lower Extremity Course/Dx - Course Course Of Treatment: Prelim read by Dr. Polk reveals possibly partially torn Achilles w/ hematoma (no full tear). Will be re-read in the AM. RICE and pain med. Pt will receive call tomorrow with updated results. Referred to ortho regardless. Danger s/sx reviewed. - Diagnoses Provider Diagnoses: Partial tear of Achilles tendon, Hematoma of right lower extremity Discharge - Sign-Out/Discharge Documenting (check all that apply): Discharge/Admit/Transfer - Discharge Plan Condition: Stable Disposition: HOME Prescriptions: Acetaminop/Codeine 30 MG TAB* [Tylenol/Codeine 30 MG TAB*] 1 tab PO Q6H PRN #20 tab MDD 4 PRN Reason: Pain Patient Education Materials: Hematoma (ED), Tendon Rupture (ED) Forms: *Work Release Referrals: Jerel Merlos MD [Medical Doctor] - Additional Instructions: REST, ICE, ELEVATE and KEEP SPLINT CLEAN, DRY AND IN PLACE UNTIL SEEN BY ORTHOPEDICS You may take ibuprofen alternating with acetaminophen with codeine as needed for pain Call orthopedics tomorrow to schedule follow-up. Your ultrasound was read as partial tear with hematoma betsey however another radiologist will read it again tomorrow for a final report. You will receive a call if these findings are different from betsey's report. *If you develop numbness, tingling, weakness, swelling or skin discoloration, loosen ROSA wrap and elevate arm for 20 minutes. If symptoms persist, return to ED - Billing Disposition and Condition Condition: STABLE Disposition: HOME
[2017-09-13] MEDS ORDERED: Acetaminop/Codeine 30 MG TAB* 1 TAB (300 MG/30 MG) PO ONE (22:05)
[2017-09-13 23:03] VITALS: BP 127/82
--- NOTE | 2017-09-14 08:05 | RAD ---
Indication: Severe pain medial aspect RIGHT posterior lower leg/calf. Fall. [place] popping sound. Comparison: No relevant prior exams available on the [facility] for comparison. Technique: Ultrasound RIGHT posterior calf through Achilles tendon. Cine loops obtained. REPORT AND IMPRESSION: The Achilles tendon appears normal. No torn retracted gastrocnemius or soleus muscle fibers or intramuscular hematoma evident. No significant soft tissue edema evident. No cyst or other abnormality evident at the popliteal fossa. Normal flow demonstrated on color Doppler at the popliteal artery and vein.
== END 2017-09-13 23:01 | disposition home or self-care (01) ==
LOC: ED 16:53
DX: S86.011A Strain of right Achilles tendon, initial encounter (principal); S80.11XA Contusion of right lower leg, initial encounter; W18.49XA Other slipping, tripping and stumbling without falling, initial encounter; Y92.9 Unspecified place or not applicable; Z88.3 Allergy status to other anti-infective agents; Z88.5 Allergy status to narcotic agent
CPT/HCPCS: 36415; 80053; 85025; 85610; 96372; 99282; A9270-GY; J1885

== ENCOUNTER 2017-10-01 00:24 | Emergency (ER) | payer BC, OTHER ==
[2017-10-01] MEDS ORDERED: HYDROmorphone INJ* 2 MG/ML CARPUJECT SYRINGE IV SLOW PU ONE (01:20)
[2017-10-01] MEDS ORDERED: Ondansetron INJ* 2 MG/ML VIAL IV ONE (01:20)
[2017-10-01 01:39] LABS: ABS Basophils 0.1 10^3/ul (0-0.2); ABS Eosinophils 0.2 10^3/ul (0-0.6); ABS Lymphocytes 2.9 10^3/ul (1.0-4.8); ABS Monocytes 0.8 10^3/ul (0-0.8); ABS Neutrophils 7.2 10^3/ul (1.5-7.7); ABS Nucleated RBC 0 10^3/ul; Eosinophil % 1.7 % (0-6); Hematocrit 37 % (35-47); Hemoglobin 12.4 g/dl (12.0-16.0); Lymphocyte % 25.7 % (25-47); Mean Corpuscular HGB Conc 33 g/dl (31-36); Mean Corpuscular Hemoglobin 28 pg (27-31); Mean Corpuscular Volume 85 fL (80-97); Nucleated Red Blood Cells % 0; Platelet Count 269 10^3/ul (150-450); Red Blood Count 4.39 10^6/ul (4.00-5.40); Red Cell Distribution Width 15 % (10.5-15); White Blood Count 11.1 10^3/ul (3.5-10.8)
[2017-10-01] MEDS ORDERED: Ondansetron ODT TAB* 4 MG ONE (01:41)
[2017-10-01] MEDS ORDERED: Ondansetron ODT TAB* 4 MG PO ONE (01:51)
[2017-10-01 01:56] LABS: EGFR Non-African American 115.9 (>60)
[2017-10-01] MEDS ORDERED: Iohexol 350* (CONTRAST) 500 ML MDV IV ONE (02:39)
[2017-10-01] MEDS ORDERED: Metoclopramide IV* 5 MG/ML 2 ML VIAL IV ONE (03:49)
[2017-10-01] MEDS ORDERED: methylPREDNISolone 125 MG* 2 ML VIAL IV ONE (03:49)
[2017-10-01] MEDS ORDERED: Ketorolac INJ* 30 MG/ML 1 ML VIAL IV PUSH ONE (03:49)
[2017-10-01] MEDS ORDERED: Sterile Water for Inj* 10 ML ONE (04:08)
[2017-10-01 05:05] VITALS: BP 123/80
--- NOTE | 2017-10-01 07:38 | RAD ---
HISTORY: Chest pain/SOB COMPARISONS: May 18, 2015 TECHNIQUE: Multiple contiguous axial CT scans of the chest were obtained after the administration of nonionic intravenous contrast, timed to the pulmonary arterial phase of contrast enhancement.. Coronal and sagittal multiplanar reformations are also submitted for review. FINDINGS: NECK AND THYROID: The lower neck and thyroid are unremarkable. CHEST WALL: There is no lower cervical, axillary, or supraclavicular lymphadenopathy by size criteria. HEART AND PERICARDIUM: The heart is unremarkable. AORTA AND PULMONARY VASCULATURE: There is no pulmonary arterial filling defect to suggest pulmonary embolism. There is no linear filling defect within the aorta to suggest aortic dissection. The artery is enlarged compared to the aorta as noted on previous examinations. MEDIASTINUM: There is no mediastinal lymphadenopathy by size criteria. JUANCARLOS: There is no hilar lymphadenopathy by size criteria. AIRWAY AND ESOPHAGUS: The airway is unremarkable, without endobronchial filling defect. The esophagus is grossly normal. LUNG PARENCHYMA: The lungs are clear. PLEURA: No pleural abnormalities are noted. UPPER ABDOMEN: The upper abdomen is unremarkable. BONES AND SOFT TISSUES: No bone or soft tissue abnormalities are noted. OTHER: None. IMPRESSION: 1. NO PULMONARY ARTERIAL FILLING DEFECT TO SUGGEST PULMONARY EMBOLISM. 2. AGAIN NOTED IS ENLARGEMENT OF THE PULMONARY ARTERY COMPARED TO THE AORTA SUGGESTIVE OF PULMONARY ARTERIAL HYPERTENSION.
--- NOTE | 2017-10-18 10:51 | ED ---
Marv Wang Natalie, scribed for Nitin Plata MD on 10/01/17 at 0122 . HPI Chest Pain - HPI Summary HPI Summary: The patient is a 32 y/o F presenting to the ED c/o right chest wall pain starting at 19:00 today. She states that she was coming back from dinner when she placed her child in the car and began driving home when the pain started. She went to the mall where the pain became worse while she was walking around. She then was at the movies and was in discomfort the whole time. The pain radiates from her right anterior chest to her back, rated 7/10 in severity. She additionally c/o diffuse headache all over her head, which she usually gets around the time of her menstrual cycle, which is not now, although this headache is worse than usual ones. The headaches are associated with nausea and lightheadedness. In the ED, she is uncomfortable but the pain is alleviated by rest. Pt reports that around this year, she injured her leg and had internal bleeding, but she did not have a blood clot. - History of Current Complaint Chief Complaint: EDChestWallPain Time Seen by Provider: 10/01/17 00:38 Hx Obtained From: Patient Hx Last Menstrual Period: 2 weeks ago Onset/Duration: Started Hours Ago, Still Present Time of Onset: 19:00 Timing: Constant, Lasting Hours Initial Severity: Mild Current Severity: Moderate Pain Intensity: 7 Pain Scale Used: 0-10 Numeric Chest Pain Location: Right Anterior Chest Pain Radiates: Yes Chest Pain Radiates To:: Back Character: Other: - discomfort Aggravating Factor(s): Exertion Alleviating Factor(s): Rest Associated Signs and Symptoms: Positive: Chest Pain, Headaches, Nausea - Allergy/Home Medications Allergies/Adverse Reactions: Allergies Allergy/AdvReac Type Severity Reaction Status Date / Time benzoyl peroxide Allergy Hives Verified 10/01/17 00:35 [From Benzamycin] erythromycin base Allergy Hives Verified 10/01/17 00:35 [From Benzamycin] hydrocodone Allergy Hives Verified 10/01/17 00:35 oxycodone Allergy Hives Verified 10/01/17 00:35 tramadol Allergy Hallucinati Verified 10/01/17 00:35 ons Home Medications: Home Medications Aspirin/Acetaminophen/Caffeine [Excedrin Migraine Caplet] 1 each PO 10/01/17 [ History] Ibuprofen TAB* [Motrin TAB* 400 MG] 400 mg PO Q6H PRN 10/01/17 [History Confirmed 10/01/17] PMH/Surg Hx/FS Hx/Imm Hx Endocrine/Hematology History: Denies: Hx Anticoagulant Therapy, Hx Blood Disorders, Hx Diabetes, Hx Thyroid Disease, Hx Anemia, Hx Unexplained Bleeding Cardiovascular History: Reports: Hx Cardiomegaly - "Enlarged heart" Denies: Hx Aneurysm, Hx Atrial Fibrillation, Hx Congenital Heart Disease, Hx Coronary Artery Disease, Hx Deep Vein Thrombosis, Hx Hypercholesterolemia, Hx Hypotension, Hx Myocardial Infarction, Hx Syncope, Hx Valvular Heart Disease Respiratory History: Denies: Hx Asthma, Hx Chronic Obstructive Pulmonary Disease (COPD), Hx Pneumonia, Hx Pulmonary Embolism, Hx Sleep Apnea GI History: Reports: Hx Gastroesophageal Reflux Disease, Hx Irritable Bowel - ON MEDICATION History: Reports: Hx Kidney Stones, Other Problems/Disorders - frequent UTI Denies: Hx Acute Renal Failure, Hx Chronic Renal Failure Musculoskeletal History: Reports: Hx Orthopedic Injury - Rt MT ligament tear requiring surgery Sensory History: Reports: Hx Contacts or Glasses - GLASSES Opthamlomology History: Reports: Hx Contacts or Glasses - GLASSES Neurological History: Reports: Hx Headaches, Hx Migraine - 2-3 TIMES A MONTH - PREMENSTRUAL Psychiatric History: Reports: Hx Anxiety, Hx Depression, Other Psychiatric Issues/Disorders - Panic attacks - Surgical History Surgery Procedure, Year, and Place: 2003 & 2007 CSECTION X 2, [facility]. 1990 T[facility]ILLECTOMY, [facility]. 2009 RIGHT FOOT SURGERY FOR INJURY, [facility]. LEFT FOOT SURGERY BUNIONECTOMY 05/18/13 Hx Anesthesia Reactions: No - Immunization History Date of Tetanus Vaccine: Unknown Infectious Disease History: No Infectious Disease History: Denies: Traveled Outside the [place] in Last 30 Days - Family History Known Family History: Positive: Cardiac Disease, Diabetes - Social History Alcohol Use: None Hx Substance Use: No Substance Use Type: Reports: None Hx Tobacco Use: No Smoking Status (MU): Never Smoked Tobacco Review of Systems Positive: Chest Pain Positive: Nausea Neurological: Other - lightheaded Positive: Headache All Other Systems Reviewed And Are Negative: Yes Physical Exam - Summary Physical Exam Summary: Appearance: Well-appearing, no distress, Well-nourished Skin: Warm, color reflects adequate perfusion Head: Normal Head/Face inspection Eyes: Conjunctiva clear ENT: Normal inspection Neck: Supple, no nodes, no JVD. Respiratory: Lungs clear, Normal breath sounds, no respiratory distress Cardio: RRR, No murmur, pulses normal, brisk capillary refill Abdomen: soft, nontender, no guarding, no rebound Bowel sounds: present Musculoskeletal: Strength Intact/ ROM intact. No calf tenderness. No edema. Neuro: Alert, muscle tone normal, facial symmetry, speech normal, sensory/motor intact Psychological: Normal Triage Information Reviewed: Yes Vital Signs On Initial Exam: Initial Vitals Temp Pulse Resp BP Pulse Ox 97.8 F 90 20 124/76 100 10/01/17 00:33 10/01/17 00:33 10/01/17 00:33 10/01/17 00:33 10/01/17 00:33 Vital Signs Reviewed: Yes Diagnostics - Vital Signs Vital Signs Temp Pulse Resp BP Pulse Ox 10/01/17 01:00 85 10/01/17 00:33 97.8 F 90 20 124/76 100 - Laboratory Lab Results: Lab Results 10/01/17 10/01/17 10/01/17 Range/Units 01:32 01:32 01:32 WBC 11.1 H (3.5-10.8) 10^3/ul RBC 4.39 (4.00-5.40) 10^6/ul Hgb 12.4 (12.0-16.0) g/dl Hct 37 (35-47) % MCV 85 (80-97) fL MCH 28 (27-31) pg MCHC 33 (31-36) g/dl RDW 15 (10.5-15) % Plt Count 269 (150-450) 10^3/ul MPV 8.0 (7.4-10.4) um3 Neut % (Auto) 64.6 (38-83) % Lymph % (Auto) 25.7 (25-47) % [place] % (Auto) 7.4 H (0-7) % Eos % (Auto) 1.7 (0-6) % Baso % (Auto) 0.6 (0-2) % Absolute Neuts (auto) 7.2 (1.5-7.7) 10^3/ul Absolute Lymphs (auto) 2.9 (1.0-4.8) 10^3/ul Absolute Monos (auto) 0.8 (0-0.8) 10^3/ul Absolute Eos (auto) 0.2 (0-0.6) 10^3/ul Absolute Basos (auto) 0.1 (0-0.2) 10^3/ul Absolute Nucleated RBC 0 10^3/ul Nucleated RBC % 0 Sodium 139 (135-145) mmol/L Potassium 3.9 (3.5-5.0) mmol/L Chloride 105 (101-111) mmol/L Carbon Dioxide 27 (22-32) mmol/L Anion Gap 7 (2-11) mmol/L BUN 12 (6-24) mg/dL Creatinine 0.60 (0.51-0.95) mg/dL Est GFR ( Amer) 149.0 (>60) Est GFR (Non-Af Amer) 115.9 (>60) BUN/Creatinine Ratio 20.0 (8-20) Glucose 90 (70-100) mg/dL Calcium 9.1 (8.6-10.3) mg/dL Total Bilirubin 0.30 (0.2-1.0) mg/dL AST 12 L (13-39) U/L ALT 16 (7-52) U/L Alkaline Phosphatase 61 (34-104) U/L Troponin I 0.00 (<0.04) ng/mL B-Natriuretic Peptide 11 ( - 100) pg/mL Total Protein 6.5 (6.4-8.9) g/dL Albumin 3.9 (3.2-5.2) g/dL Globulin 2.6 (2-4) g/dL Albumin/Globulin Ratio 1.5 (1-3) Result Diagrams: 18 01:32 18 01:32 Lab Statement: Any lab studies that have been ordered have been reviewed, and results considered in the medical decision making process. - CT Chest/Thorax CTA CT Interpretation: No Acute Changes - No evidence of acute pathology. ED physician has reviewed this report. CT Interpretation Completed By: Radiologist - EKG 00:20 Cardiac Rate: NL EKG Rhythm: Sinus Rhythm - 91 BPM EKG Interpretation: No ST segment elevation. Re-Evaluation - Re-Evaluation First Eval Re-Evaluation Time: 04:49 Change: Improved Comment: Pt chest pain improved with IV analgesia. Unclear etiology at this time. Chest Pain Course/Dx - Diagnoses Provider Diagnoses: Atypical chest pain Discharge - Sign-Out/Discharge Documenting (check all that apply): Discharge/Admit/Transfer - The pt will be discharged home under stable conditions. - Discharge Plan Condition: Improved Disposition: HOME Prescriptions: Acetaminop/Codeine 30 MG TAB* [Tylenol/Codeine 30 MG TAB*] 1 tab PO Q6H PRN #12 tab MDD 4 tablets PRN Reason: Pain Amoxicillin/Clavulanate TAB* [Augmentin TAB 875*] 875 mg PO BID #10 tab Ketorolac TAB * [Toradol TAB *] 10 mg PO Q6H PRN #10 tab PRN Reason: Pain predniSONE TAB* [Deltasone 20 MG TAB*] 40 mg PO DAILY #10 tab Patient Education Materials: Chest Pain (ED) Referrals: Majo Pineda FORMAT PROOFREADER [Primary Care Provider] - 2 Days - Billing Disposition and Condition Condition: IMPROVED Disposition: Home The documentation as recorded by the Marv ellis Natalie accurately reflects the service I personally performed and the decisions made by Boni talbot Omari A, MD.
== END 2017-10-01 05:12 | disposition home or self-care (01) ==
LOC: ED 00:24
DX: R07.89 Other chest pain (principal); R51 Headache; R11.0 Nausea
CPT/HCPCS: 36415; 71275; 80053; 83880; 84484; 85025; 93005; 96374; 96375; 99283; A9270-GY; J1170; J1885; J2765; J2930; Q9967

== ENCOUNTER → 2018-10-09 13:37 | Emergency (ER) | payer BC, OTHER ==
[~2018-10-09 13:37] MED LIST: Diazepam INJ (NF) 5 MG/ML 10 ML VIAL (50 MG TOTAL) IM ONE; Diazepam SYRINGE* 5 MG/ML 2 ML SYRINGE (10 MG total) IM ONE; Ketorolac INJ* 60 MG/2 ML VIAL IM ONE; Metoclopramide IV* 5 MG/ML 2 ML VIAL IV SLOW PU ONE; Morphine 4 MG/ML VIAL (1 ml) 4 MG/ML VIAL IV ONE; NS 0.9% 1000 ML** 1,000 ML IV ONE; Ondansetron ODT TAB* 4 MG PO ONE; diPHENhydraMINE IV* 50 MG/ML 1 ml VIAL (BENADRYL) SLOW PUSH ONE
--- NOTE | 2018-10-09 17:45 | ED ---
Back Pain - HPI Summary HPI Summary: The patient is a 33 y/o F presenting to [facility] with a chief complaint of sudden onset upper back pain starting two days ago with worsening of a migraine radiating to the right neck and right shoulder today. She reports that she isn' t sure of the mechanism of injury because she hasn't done any strenuous activity or lifted anything, but she does have two young toddlers that weigh 25 lbs, so that may be the cause. She additionally c/o neck stiffness, incontinence of bowel and bladder, and photophobia. She has used Ibuprofen and Tylenol to no relief. The pain is currently rated 8/10 in severity. She denies fever, chills, erythema of eyes, sore throat, CP, SOB, cough, abdominal pain, N/ V, dysuria, hematuria, edema, rash, and dizziness. Hx of headaches and migraines. Nonsmoker, no EtOH, no substance use. - History of Current Complaint Chief Complaint: EDBackInjuryPain Stated Complaint: LOW BACK PAIN PER PT Time Seen by Provider: 10/09/18 17:31 Hx Obtained From: Patient Hx Last Menstrual Period: 2 weeks ago Onset/Duration: Sudden Onset, Lasting Days - two, Still Present, Worse Since - today Onset/Duration: Started Days Ago, Still Present Timing: Constant, Lasting Days Back Pain Location: Is Discrete @ - right upper back Severity Initially: Moderate Severity Currently: Severe Pain Intensity: 8 Pain Scale Used: 0-10 Numeric Character: Sharp Aggravating Symptom(s): Movement Alleviating Symptom(s): Rest Associated Signs And Symptoms: Positive: Other - POSITIVE: migraine radiating to right neck and right shoulder, neck stiffness, incontinence of bowel and bladder, photophobia; NEGATIVE: fever, chills, erythema of eyes, sore throat, CP , SOB, cough, abdominal pain, N/V, dysuria, hematuria, edema, rash, dizziness - Allergies/Home Medications Allergies/Adverse Reactions: Allergies Allergy/AdvReac Type Severity Reaction Status Date / Time benzoyl peroxide Allergy Hives Verified 10/09/18 13:43 [From Benzamycin] erythromycin base Allergy Hives Verified 10/09/18 13:43 [From Benzamycin] hydrocodone Allergy Hives Verified 10/09/18 13:43 oxycodone Allergy Hives Verified 10/09/18 13:43 tramadol Allergy Hallucinati Verified 10/09/18 13:43 ons PMH/Surg Hx/FS Hx/Imm Hx Endocrine/Hematology History: Denies: Hx Anticoagulant Therapy, Hx Blood Disorders, Hx Diabetes, Hx Thyroid Disease, Hx Anemia, Hx Unexplained Bleeding Cardiovascular History: Reports: Hx Cardiomegaly - "Enlarged heart" Denies: Hx Aneurysm, Hx Atrial Fibrillation, Hx Congenital Heart Disease, Hx Coronary Artery Disease, Hx Deep Vein Thrombosis, Hx Hypercholesterolemia, Hx Hypotension, Hx Myocardial Infarction, Hx Syncope, Hx Valvular Heart Disease Respiratory History: Denies: Hx Asthma, Hx Chronic Obstructive Pulmonary Disease (COPD), Hx Pneumonia, Hx Pulmonary Embolism, Hx Sleep Apnea GI History: Reports: Hx Gastroesophageal Reflux Disease, Hx Irritable Bowel - ON MEDICATION History: Reports: Hx Kidney Stones, Other Problems/Disorders - frequent UTI Denies: Hx Acute Renal Failure, Hx Chronic Renal Failure Musculoskeletal History: Reports: Hx Orthopedic Injury - Rt MT ligament tear requiring surgery Sensory History: Reports: Hx Contacts or Glasses - GLASSES Opthamlomology History: Reports: Hx Contacts or Glasses - GLASSES Neurological History: Reports: Hx Headaches, Hx Migraine - 2-3 TIMES A MONTH - PREMENSTRUAL Psychiatric History: Reports: Hx Anxiety, Hx Depression, Other Psychiatric Issues/Disorders - Panic attacks - Surgical History Surgery Procedure, Year, and Place: 2003 & 2007 CSECTION X 2, [facility]. 1990 T[facility]ILLECTOMY, [facility]. 2009 RIGHT FOOT SURGERY FOR INJURY, [facility]. LEFT FOOT SURGERY BUNIONECTOMY 05/18/13 Hx Anesthesia Reactions: No - Immunization History Date of Tetanus Vaccine: Unknown Infectious Disease History: No Infectious Disease History: Denies: Traveled Outside the [place] in Last 30 Days - Family History Known Family History: Positive: Cardiac Disease, Diabetes - Social History Alcohol Use: None Hx Substance Use: No Substance Use Type: Reports: None Hx Tobacco Use: No Smoking Status (MU): Never Smoked Tobacco Review of Systems Negative: Fever, Chills Negative: Erythema Negative: Sore Throat Negative: Chest Pain Negative: Shortness Of Breath, Cough Positive: Other - occasional incontinence of BM. Negative: Abdominal Pain, Vomiting, Nausea Positive: incontinence - occasional incontinence of urine. Negative: dysuria, hematuria Positive: Myalgia - pain in the back and right side of neck radiating into the right shoulder. Negative: Edema Negative: Rash Neurological: Other - NEGATIVE: dizziness Positive: Headache - migraine radiating into neck All Other Systems Reviewed And Are Negative: Yes Physical Exam - Summary Physical Exam Summary: Constitutional: Well-developed, Well-nourished, Alert. (-) Distressed Skin: Warm, Dry HENT: Normocephalic; Atraumatic. Scalp tenderness on the right. Eyes: Conjunctiva normal Neck: Musculoskeletal ROM normal neck. (-) JVD, (-) Stridor, (-) Tracheal deviation Cardio: Rhythm regular, rate normal, Heart sounds normal; Intact distal pulses; The pedal pulses are 2+ and symmetric. Radial pulses are 2+ and symmetric. (-) Murmur Pulmonary/Chest wall: Effort normal. (-) Respiratory distress, (-) Wheezes, (-) Rales Abd: Soft, (-) tenderness, (-) Distension, (-) Guarding, (-) Rebound Musculoskeletal: Restricted neck ROM to right. No meningismus. (-) Edema Lymph: (-) Cervical adenopathy Neuro: Alert, Oriented x3 Psych: Mood and affect Normal Triage Information Reviewed: Yes Vital Signs On Initial Exam: Initial Vitals Temp Pulse Resp BP Pulse Ox 98.0 F 91 16 136/88 97 10/09/18 13:40 10/09/18 13:40 10/09/18 13:40 10/09/18 13:40 10/09/18 13:40 Vital Signs Reviewed: Yes Diagnostics - Vital Signs Vital Signs Temp Pulse Resp BP Pulse Ox 10/09/18 13:40 98.0 F 91 16 136/88 97 - Laboratory Lab Statement: Any lab studies that have been ordered have been reviewed, and results considered in the medical decision making process. Back Pain Course/Dx - Course Course Of Treatment: The patient is a 33 y/o F presenting to [facility] with a chief complaint of sudden onset upper back pain starting two days ago with worsening of a migraine radiating to the right neck and right shoulder today. She reports that she isn't sure of the mechanism of injury because she hasn't done any strenuous activity or lifted anything, but she does have two young toddlers that weigh 25 lbs. She additionally c/o neck stiffness, incontinence of bowel and bladder, and photophobia. She denies fever, chills, erythema of eyes, sore throat, CP, SOB, cough, abdominal pain, N/V, dysuria, hematuria, edema, rash, or dizziness. Hx of headaches and migraines. Nonsmoker, no EtOH, no substance use. Upon physical exam, the patient exhibits scalp tenderness on the right, and restricted neck ROM to right without meningismus. At 1900, she is still waiting the medications for her back pain. The patient will be sign-out to Dr. Khang Schulz MD, from Dr. uDran Schuster MD, at change of shift at 1900 on 2018 pending medication administration. She is diagnosed with cervical strain. - Diagnoses Provider Diagnoses: Cervical strain Discharge - Sign-Out/Discharge Documenting (check all that apply): Sign-Out Patient Signing out patient TO: Khang Schulz - Patient is a sign-out at change of shift pending medications. Patient Received Moderate/Deep Sedation with Procedure: No - Discharge Plan Referrals: Majo Pineda, CREDIT RISK SPECIALIST [Primary Care Provider] - - Attestation Statements Document Initiated by Scribe: Yes Documenting Scribe: Miguelina Fair Provider For Whom Katt is Documenting (Include Credential): Dr. Duran Schuster MD Scribe Attestation: Miguelina Wang, scribed for Dr. Duran Schuster MD on 10/09/18 at 2043. Status of Scribe Document: Ready
--- NOTE | 2018-10-09 20:24 | ED ---
Progress - Progress Note Progress Note: Patient is received as a sign out from Dr. Schuster to Dr. Schulz at 189910/09/18 shift change pending patient receiving her medications and her disposition. 1946 patient had received Toradol and Valium IM with no relief in pain. Patient to be given fluids, morphine 4 mg IV, Reglan 10 mg IV SLOW PU, Benadryl 25 mg SLOW PUSH. 2128 patient reports relief in Sx, she will be discharged to home. Re-Evaluation - Re-Evaluation First Eval Re-Evaluation Time: 19:47 Change: Unchanged Comment: 1946 patient had received Toradol and Valium IM with no relief in pain. Patient to be given fluids, morphine 4 mg IV, Reglan 10 mg IV SLOW PU, Benadryl 25 mg SLOW PUSH. Second Eval Re-Evaluation Time: 21:29 Change: Improved Comment: 2128 patient reports relief in Sx, she will be discharged to home. Course/Dx - Course Course Of Treatment: Patient is received as a sign out from Dr. Schuster to Dr. Schulz at 189910/09/18 shift change pending patient receiving her medications and her disposition. 1946 patient had received Toradol and Valium IM with no relief in pain. Patient to be given fluids, morphine 4 mg IV, Reglan 10 mg IV SLOW PU, Benadryl 25 mg SLOW PUSH. 2128 patient reports relief in Sx, she will be discharged to home. - Diagnoses Provider Diagnoses: Cervical strain Discharge - Sign-Out/Discharge Documenting (check all that apply): Patient Departure - discharge Patient Received Moderate/Deep Sedation with Procedure: No - Discharge Plan Condition: Stable Disposition: HOME Patient Education Materials: Cervical Strain (ED) Referrals: Majo Pineda NP [Primary Care Provider] - 3 Days Additional Instructions: PLEASE RETURN TO THE ED IMMEDIATELY FOR WORSENING OR CONCERNING SYMPTOMS.FOLLOW UP WITH YOUR PRIMARY CARE PHYSICIAN WITHIN THREE DAYS. - Attestation Statements Document Initiated by Scribe: Yes Documenting Scribe: GWENDOLYN MAYA Provider For Whom Katt is Documenting (Include Credential): TAMANNA SCHULZ MD Scribe Attestation: GWENDOLYN Wang, scribed for TAMANNA SCHULZ MD on 10/09/18 at 2135. Status of Scribe Document: Ready
[2018-10-09 21:05] VITALS: BP 124/71
== END | disposition home or self-care (01) ==
LOC: ED 13:37
DX: S16.1XXA Strain of muscle, fascia and tendon at neck level, initial encounter (principal); X58.XXXA Exposure to other specified factors, initial encounter; Y92.9 Unspecified place or not applicable; M54.9 Dorsalgia, unspecified; K21.9 Gastro-esophageal reflux disease without esophagitis; Z87.442 Personal history of urinary calculi
CPT/HCPCS: 96372; 96374; 96375; 99285; A9270-GY; J1200; J1885; J2270; J2765; J3360

== ENCOUNTER 2018-12-01 07:13 | Emergency (ER) | payer BC, OTHER ==
[2018-12-01 07:29] VITALS: BP 131/72
--- NOTE | 2018-12-01 08:01 | UC ---
Dental HPI - HPI Summary HPI Summary: 33 year old female comes in with a chief complaint of dental pain and gingival swelling. Patient has a history of a couple of teeth that are decayed and she has an appointment in 2 weeks with a dentist for extraction of the teeth. Yesterday he noticed the left upper molar started giving her pain and then this morning pain is continued it's worse and now she has gingival swelling and feels swelling going into her cheek. No fevers or chills. She did take some acetaminophen which helped minimally with the pain. - History of Current Complaint Chief Complaint: UCDentalProblem Stated Complaint: TOOTH ACHE Time Seen by Provider: 12/01/18 07:54 Hx Last Menstrual Period: 11/16/18 Pain Intensity: 8 - Allergies/Home Medications Allergies/Adverse Reactions: Allergies Allergy/AdvReac Type Severity Reaction Status Date / Time benzoyl peroxide Allergy Hives Verified 12/01/18 07:29 [From Benzamycin] erythromycin base Allergy Hives Verified 12/01/18 07:29 [From Benzamycin] hydrocodone Allergy Hives Verified 12/01/18 07:29 oxycodone Allergy Hives Verified 12/01/18 07:29 tramadol Allergy Hallucinati Verified 12/01/18 07:29 ons Home Medications: Home Medications Acetaminophen 650 mg PO ONCE PRN 12/01/18 [History Confirmed 12/01/18] Previfem Control 1 tab PO DAILY 12/01/18 [History Confirmed 12/01/18] diphenhydrAMINE HCl [Benadryl Allergy] 50 mg PO ONCE PRN 12/01/18 [History Confirmed 12/01/18] PMH/Surg Hx/FS Hx/Imm Hx Previously Healthy: Yes Other History Of: Negative For: Anticoagulant Therapy - Surgical History Surgical History: Yes Surgery Procedure, Year, and Place: 2003 & 2007 CSECTION X 2, [facility]. 1990 T[facility]ILLECTOMY, [facility]. 2009 RIGHT FOOT SURGERY FOR INJURY, [facility]. LEFT FOOT SURGERY BUNIONECTOMY 05/18/13. tubal ligation - Family History Known Family History: Positive: Cardiac Disease, Diabetes - Social History Alcohol Use: Occasionally Substance Use Type: None Smoking Status (MU): Never Smoked Tobacco Household Exposure Type: Cigarettes - Immunization History Most Recent Influenza Vaccination: none Most Recent Tetanus Shot: 11/27/15 Most Recent Pneumonia Vaccination: none Review of Systems All Other Systems Reviewed And Are Negative: Yes Constitutional: Positive: Negative Skin: Positive: Negative Eyes: Positive: Negative ENT: Positive: Dental Pain Respiratory: Positive: Negative Cardiovascular: Positive: Negative Gastrointestinal: Positive: Negative Motor: Positive: Negative Neurovascular: Positive: Negative Musculoskeletal: Positive: Negative Neurological: Positive: Negative Psychological: Positive: Negative Is Patient Immunocompromised?: No Physical Exam Triage Information Reviewed: Yes Appearance: Well-Appearing, Well-Nourished, Pain Distress - MILD Vital Signs: Initial Vital Signs Temp 97.7 F 12/01/18 07:23 Pulse 89 12/01/18 07:23 Resp 18 12/01/18 07:23 BP 131/72 12/01/18 07:23 Pulse Ox 99 12/01/18 07:23 Vital Signs Reviewed: Yes Eye Exam: Normal Eyes: Positive: Conjunctiva Clear ENT: Positive: Pharynx normal Dental: Positive: Gross Decay/Caries @ - Left upper molar is severely decayed and is adjacent gingival swelling. Neck: Positive: Supple Respiratory: Positive: Lungs clear, Normal breath sounds, No respiratory distress Cardiovascular: Positive: RRR Musculoskeletal: Positive: Strength Intact, ROM Intact Neurological: Positive: Alert Psychological: Positive: Age Appropriate Behavior Skin Exam: Normal Dental Complaint Course/Dx - Differential Dx/Diagnosis Provider Diagnosis: Dental infection Discharge - Sign-Out/Discharge Documenting (check all that apply): Patient Departure All imaging exams completed and their final reports reviewed: No Studies - Discharge Plan Condition: Stable Disposition: HOME Prescriptions: Amoxicillin PO (*) [Amoxicillin 500 MG CAP*] 500 mg PO TID #30 cap Patient Education Materials: Toothache (ED) Referrals: Majo Pineda NP [Primary Care Provider] - Additional Instructions: FOLLOW UP WITH YOUR DENTIST. GET RECHECKED SOONER IF YOUR CONDITION WORSENS OR ANY QUESTIONS OR CONCERNS. - Billing Disposition and Condition Condition: STABLE Disposition: Home
== END 2018-12-01 08:07 | disposition home or self-care (01) ==
LOC: UCEAST 07:13
DX: K04.7 Periapical abscess without sinus (principal); Z88.5 Allergy status to narcotic agent
CPT/HCPCS: 99212; G0463

== ENCOUNTER 2020-07-02 09:15 | Inpatient (IN) ==
[2020-07-02] MEDS ORDERED: NS 0.9% 1000 ml BAG 2,000 ML IV ONE (10:11)
[2020-07-02] MEDS ORDERED: Ondansetron 4 mg VIAL 2 MG/ML 2 ml VIAL IV ONE (10:12)
[2020-07-02 10:54] LABS: Hematocrit 37 % (35-47); Hemoglobin 12.6 g/dL (12.0-16.0); Mean Corpuscular HGB Conc 34 g/dL (31-36); Mean Corpuscular Hemoglobin 28 pg (27-31); Mean Corpuscular Volume 83 fL (80-97); Mean Platelet Volume 8.7 fL (7.4-10.4); Platelet Count 150 10^3/uL (150-450); Red Blood Count 4.49 10^6 /uL (3.70-4.87); Red Cell Distribution Width 14 % (10-15); White Blood Count 6.9 10^3/uL (3.5-10.8)
[2020-07-02 11:19] LABS: ALT 56 U/L (7-52); AST 53 U/L (13-39); Albumin 3.1 g/dL (3.2-5.2); Alkaline Phosphatase 75 U/L (34-104); Anion Gap 7 mmol/L (2-11); BUN/Creatinine Ratio 15.4 (8-20); Blood Urea Nitrogen 8 mg/dL (6-24); CO2 Carbon Dioxide 24 mmol/L (22-32); Calcium 8.2 mg/dL (8.6-10.3); Chloride 103 mmol/L (101-111); EGFR African American 163.3 (>60); Globulin 3.1 g/dL (2-4); Glucose 110 mg/dL (70-100); HCG Pregnancy 0.61 mIU/mL; Magnesium 1.8 mg/dL (1.9-2.7); Potassium 3.6 mmol/L (3.5-5.0); Sodium 134 mmol/L (135-145); Total Protein 6.2 g/dL (6.4-8.9)
[2020-07-02 11:59] LABS: TSH Ultra Thyroid Stim Horm 0.86 mcIU/mL (0.34-5.60)
[2020-07-02 12:03] LABS: ABS Eosinophils 0.1 10^3/ul (0-0.6); ABS Lymphocytes 2.9 10^3/ul (1.0-4.8); ABS Monocytes 0.4 10^3/ul (0-0.8); ABS Neutrophils 3.5 10^3/ul (1.5-7.7); Eosinophil % 0.8 %; Lymphocyte % 42.4 %; Nucleated Red Blood Cells % 0.1
[2020-07-02] MEDS ORDERED: Magnesium Sulfate 2 gm BAG 2 GM/50 ML BAG IVPB ONE (12:25)
[2020-07-02 14:19] LABS: Rheumatoid Factor < 10 IU/mL (<15)
[2020-07-02 14:56] LABS: Influenza A Molecular Negative (Negative); Influenza B Molecular Negative (Negative)
[2020-07-02] MEDS: DOXYcycline 100 MG in NS 0.9% 250 ml 250 ML IVPB SCH (15:06)
[2020-07-02] MEDS: Enoxaparin 40 MG/0.4 ML SYR SUBCUT SCH (15:17)
[2020-07-02 16:07] LABS: Urine Appearance Cloudy; Urine Bilirubin Negative (Negative); Urine Blood 2+ (Negative); Urine Color Yellow; Urine Glucose Negative (Negative); Urine Ketones 1+ (Negative); Urine Nitrite Negative (Negative); Urine Protein Negative (Negative); Urine Specific Gravity 1.013 (1.010-1.030); Urine Urobilinogen Positive (Negative)
[2020-07-02 16:24] LABS: Urine Bacteria Absent (Absent); Urine Red Blood Cell Trace(0-2/hpf) (Absent); Urine Squamous Epithelial Cell Present (Absent); Urine White Blood Cell Trace(0-5/hpf) (Absent)
[2020-07-02 16:32] LABS: Erythrocyte Sed Rate 41 mm/Hr (0-19)
[2020-07-02 17:51] LABS: Creatine Kinase 22 U/L (10-223)
[2020-07-03] MEDS: Ondansetron ODT 4 mg TAB 4 MG TAB PO PRN ×2 (01:50→12:27)
[2020-07-03] MEDS: DOXYcycline 100 MG in NS 0.9% 250 ml 250 ML IVPB SCH ×2 (01:51→14:31)
[2020-07-03] MEDS: Enoxaparin 40 MG/0.4 ML SYR SUBCUT SCH (13:23)
[2020-07-04 05:12] LABS: Albumin 2.8 g/dL (3.2-5.2); Albumin/Globulin Ratio 0.9 (1-3); BUN/Creatinine Ratio 13.5 (8-20); C Reactive Protein 76.62 mg/L (<8.01); Calcium 8.2 mg/dL (8.6-10.3); EGFR African American 163.3 (>60); Globulin 3.2 g/dL (2-4); Potassium 3.4 mmol/L (3.5-5.0); Total Bilirubin 0.6 mg/dL (0.2-1.0)
[2020-07-04 11:54] VITALS: BP 116/55
[2020-07-04] MEDS: Enoxaparin 40 MG/0.4 ML SYR SUBCUT SCH (11:57)
[2020-07-05 14:39] LABS: Cytomegalovirus IgG Antibody Positive (Negative)
[2020-07-07 14:45] LABS: Bartonella Henselae IgG <1:128 titer (<1:128); Bartonella Henselae IgM <1:20 titer (<1:20); Bartonella Quintana IgG <1:128 titer (<1:128); Bartonella Quintana IgM <1:20 titer (<1:20)
== END 2020-07-04 15:00 | disposition home or self-care (01) | DRG 722 ==
LOC: ED 09:15 → MED 13:00
PROVIDERS: ADMIT Internal Medicine; ATTEND Pediatrics